=== PATIENT | male | born 1990 | race Caucasian/White ===

== ENCOUNTER 2022-11-22 10:07 | Outpatient (AMB) | payer SELFPAY ==
--- NOTE | 2022-11-22 11:26 | AM.OFFWIN_ITS ---
Intake Vital Signs 11/22/22 11:28 Height 5 ft 10 in Weight 228 lb BMI 32.7 BP 122/82 Blood Pressure Location Lt brachial Position Sitting Pulse 78 Pulse Source Pulse Oximeter Pulse Oximetry (%) 98 Oxygen Delivery Method Room Air Intake Visit Reasons: [employer], Right Great toe pain ([phone]) Intake Note: Patient here for right great toe pain, he states he thought it was a ingrown nail but it has worsened. Patient Tobacco Use Status: Current everyday Tobacco user Allergies No Known Allergies Allergy (Unverified 11/22/22 11:42) Medication List - Last Reconciled 11/22/22 by Katelyn Wan CNP No Known Home Meds Do you need a note to return to daycare/school/sports/work: No HPI HPI Comments History of Present Illness Details 32-year-old male presents today for sick visit, complaining of right great toe pain secondary to ingrown toenail that has since become more reddened, swollen and painful. He denies recent injury, trauma, fever, chills, cough, CP, SOB, headache, dizziness, abdominal pain, nausea, vomiting, changes in bowels or bladder. REPLACED BY [facility] Social History Patient Tobacco Use Status: Current everyday Tobacco user Review of Systems Const All systems reviewed & are unremarkable except as noted in HPI and below Physical Exam Vital Signs: Last Vital Signs Pulse 78 11/22/22 11:28 BP 122/82 11/22/22 11:28 Pulse Ox 98 11/22/22 11:28 Oxygen Delivery Method Room Air 11/22/22 11:28 BMI result Body Mass Index 32.7 Const General: well developed Orientation/consciousness: patient oriented x3 Limitations: no limitations HEENT Head: Yes normal to inspection, Yes normocephalic and Yes atraumatic Ears: hearing grossly normal bilaterally Mouth: moist mucous membranes Neck Neck: Yes normal visual inspection, Yes full ROM, Yes no lymphadenopathy and Yes supple Chest Chest palpation & inspection: normal inspection of the chest Resp Effort & Inspection: normal respiratory effort, no cough, no respiratory distress and not tachypneic Auscultation: clear to auscultation bilaterally, no rhonchi and no wheezes Cardio Rate: regular rate Rhythm: regular rhythm Heart sounds: S1 normal heart sound present, S2 normal heart sound present and no murmurs Peripheral pulses: Peripheral pulses 2+ throughout GI Palpation (GI): Soft to palpation, nontender and No hepatosplenomegaly present Percussion: Yes normal to percussion Auscultation: normal bowel sounds Neuro General: patient oriented x3, gait normal, moves all extremities and no focal motor deficits Extrem Other: right great toe intense erythema, edema and small purulent drainage, painful to touch, + ingrown toe nail, infectious looking right great toe. Psych Appearance: well kempt Mental Status: mental status grossly normal Speech and movement: Normal speech and movement present Affect: normal affect Attitude: cooperative Assessment & Plan Assessment & Plan (1) Cellulitis of great toe of right foot: Code(s): L03.031 - Cellulitis of right toe Plan: ingrown toe nail infection. Soak in warm water w/ Epson salt Plan 32-year-old male seen today for right great toe cellulitis secondary to ingrown toenail. Will treat with Ciprofloxacin-dexamethasone drops; apply 4 gtts to right great toe infection bid x 5 days. Amoxicillin 500 mg po bid x 5 days, encouraged to take w/ food to reduce GI upset. Warm water epson salt soaks tid of right great toe. Encouraged to follow up with PCP for referral to pediatrist for removal of ingrown toenail Return to office for worsening or unresolved symptoms. Medications: New ciprofloxacin-dexamethasone 0.3-0.1 % Apply to right great toe infection 4 drps otic (ears) BID 5 days 7.5 mL 0RF L08.9 - Local infection of the skin and subcutaneous tissue, unspecified amoxicillin 500 mg PO BID 5 days 10 caps 0RF L03.031 - Cellulitis of right toe Coding Level of Care Code New Pt Level 3 (85819) Diagnoses Cellulitis of great toe of right foot L03.031
[2022-11-22 11:28] VITALS: BP 122/82; PULSE 78; O2SAT 98; BMI 32.7
== END 2022-11-22 11:56 | disposition home or self-care (01) ==
PROVIDERS: PCP Internal Medicine; Visit Provider Nurse Practitioner Acute Care
DX: L03.031 Cellulitis of right toe (principal)
CPT/HCPCS: 99051; 99203

== ENCOUNTER 2023-03-30 10:57 | Outpatient (AMB) | payer OTHER, SELFPAY ==
[2023-03-30 13:14] VITALS: BP 126/100; PULSE 109; TEMP 36.7; O2SAT 96; BMI 32.7
--- NOTE | 2023-03-30 13:14 | MHC.OFFWIV ---
Intake Vital Signs 03/30/23 13:14 Height 5 ft 10 in Weight 228 lb BMI 32.7 BP 126/100 H Blood Pressure Location Lt brachial Position Sitting Pulse 109 H Pulse Source Pulse Oximeter Temp 98.0 F Temp Source Temporal Artery Scan Pulse Oximetry (%) 96 Oxygen Delivery Method Room Air Intake Visit Reasons: EP sore throat [phone] Intake Note: pt is here today for sore throat started 4 days ago Patient Tobacco Use Status: Current everyday Tobacco user Allergies No Known Allergies Allergy (Verified 03/30/23 13:15) Do you need a note to return to daycare/school/sports/work: No HPI HPI Comments History of Present Illness Details Patient presents to the walk-in stay with complaints of sore throat for last 4 days Denies known sick contacts Pain with swallowing Tolerating p.o., denies nausea, vomiting Denies headaches, fevers, chest pain, syncope, dizziness, weakness or difficulty managing secretions Reports that he has a history of strep, this feels like previous episodes of strep [facility] Social History Patient Tobacco Use Status: Current everyday Tobacco user Review of Systems Const All systems reviewed & are unremarkable except as noted in HPI and below Physical Exam Vital Signs: Last Vital Signs Temp 98.0 F 03/30/23 13:14 Pulse 109 H 03/30/23 13:14 BP 126/100 H 03/30/23 13:14 Pulse Ox 96 03/30/23 13:14 Oxygen Delivery Method Room Air 03/30/23 13:14 BMI result Body Mass Index 32.7 General: awake, alert, oriented. Answers questions appropriately. Fully engaged in examination. Skin: warm, dry, intact HEENT: TMs intact bilaterally, no redness. Posterior pharynx erythematous with white exudate bilaterally. Moist oral mucosa. Sclera without icterus or injection. Cardiac: External chest normal in appearance. Respiratory: LSCTAB. Abdomen: without gross distension. Neurological: Oriented to person, place, time and situation. Thought process intact. Psychiatric: Appropriate mood and affect. Good judgment and insight. Results AMB Rapid Strep AMB Rapid Strep Negative Last Edit by Chris Scott CMA on 03/30/23 13:35 Results Reviewed Results Reviewed: Rapid strep negative Assessment & Plan Assessment & Plan (1) Pharyngitis: Code(s): J02.9 - Acute pharyngitis, unspecified Plan Patient presented to the walk-in today with complaints of sore throat Rapid strep negative however history and physical exam consistent with strep pharyngitis. Will treat with antibiotics. Amoxicillin 500 mg twice daily for 10 days Rest, drink plenty of fluids. Tylenol or Motrin as needed Discussed preventative measures including no sharing of drinks, utensils or kissing. Dispose of tooth brush every 3 days and at completion of the antibiotics. All questions and concerns were answered, patient agrees with plan Follow with primary care or return to the clinic for any new or worsening symptoms Orders: Orders AMB Rapid Strep Screen Today Z13.9 - Encounter for screening, unspecified Medications: New amoxicillin 500 mg PO BID 20 caps 0RF 10 days Coding Level of Care Code Est Pt Level 4 (26211) Diagnoses Pharyngitis J02.9
== END 2023-03-30 13:44 | disposition home or self-care (01) ==
PROVIDERS: PCP Internal Medicine; Visit Provider Registered Nurse Emergency
DX: J02.9 Acute pharyngitis, unspecified (principal)
CPT/HCPCS: 87880; 99213